=== PATIENT | female | born 1975 | race Asian ===

== ENCOUNTER 2021-09-30 11:14 | Day surgery (SDC) | payer SELFPAY ==
[~2021-09-30 11:14] MED LIST: Albuterol 0.083% 2.5 MG/3 ML Neb Soln NEB PRN; HYDROmorphone 1 MG/ML Syringe IVPUSH PRN; Lactated Ringers 1,000 ML IV SCH; Metoclopramide 10 MG/2 ML SDV IVPUSH PRN; Morphine 2 MG/ML SYRINGE IVPUSH PRN; Naloxone 0.4 MG/ML SDV IVPUSH PRN; Ondansetron 4 MG/2 ML SDV IVPUSH PRN; Propofol 200 MG/20 ML SDV ONE; Sodium Chloride 0.9% 10 ML Syringe FLUSH PRN; Sodium Chloride 0.9% 2.5 ML Syringe FLUSH PRN; Sodium Chloride 0.9% 20 ML SDV IV PRN; fentaNYL 100 MCG/2 ML SDV IVPUSH PRN; fentaNYL 250 MCG/5 ML SDV ONE
[2021-09-30] MEDS ORDERED: Bupivacaine Liposome 1.3% 20 ML SDV ONE (11:15)
[2021-09-30] MEDS ORDERED: Propofol 200 MG/20 ML SDV ONE (11:19)
[2021-09-30] MEDS ORDERED: Albuterol 0.083% 2.5 MG/3 ML Neb Soln NEB PRN (11:47)
[2021-09-30] MEDS ORDERED: HYDROmorphone 1 MG/ML Syringe IVPUSH PRN (11:47)
[2021-09-30] MEDS ORDERED: Naloxone 0.4 MG/ML SDV IVPUSH PRN (11:47)
[2021-09-30] MEDS ORDERED: fentaNYL 100 MCG/2 ML SDV IVPUSH PRN (11:47)
[2021-09-30] MEDS ORDERED: Ondansetron 4 MG/2 ML SDV IVPUSH PRN (11:47)
[2021-09-30] MEDS ORDERED: Morphine 2 MG/ML SYRINGE IVPUSH PRN (11:47)
[2021-09-30] MEDS ORDERED: Metoclopramide 10 MG/2 ML SDV IVPUSH PRN (11:47)
[2021-09-30] MEDS ORDERED: cefOXitin 1 GM Vial ONE (11:54)
[2021-09-30] MEDS ORDERED: Lidocaine 2% Jelly 30 ML Tube ONE (12:47)
[2021-09-30] MEDS ORDERED: Diazepam 5 MG Tab PO ONE (13:32)
[2021-09-30] MEDS ORDERED: Dexamethasone 4 MG/ML 5 ML MDV ONE (13:57)
[2021-09-30] MEDS ORDERED: Ondansetron 4 MG/2 ML SDV ONE (13:57)
[2021-09-30] MEDS ORDERED: cefOXitin 2 GM in Premix Bag 1 BAG IV ONE (16:45)
== END 2021-09-30 15:15 | disposition home or self-care (01) ==
LOC: MW.SDS 11:14
PROVIDERS: ATTEND Surgery
DX: Z12.11 Encounter for screening for malignant neoplasm of colon (principal); K64.3 Fourth degree hemorrhoids
CPT/HCPCS: 45378; 46255; 81025; A9270; J0131; J0694; J1100; J2370; J2405; J2704; J3010; J7120; 00902